=== PATIENT | female | born 1955 | race Caucasian/White ===

== ENCOUNTER 2024-07-24 13:23 | Inpatient (IN) | payer OTHER ==
[~2024-07-24] VITALS: Ht 157.4 cm; Wt 121.6 kg
[2024-07-24 13:36] VITALS: BP 143/73
[2024-07-24 13:56] LABS: BASO % 0.4 % (0.0-1.0); EOS # 0.5 10*3/uL (0.0-0.4); EOS % 4.8 % (1.0-4.0); HEMATOCRIT 34.9 % (37.0-47.0); LYMPH # 1.1 10*3/uL (1.3-4.4); MEAN CELL VOLUME 94.1 fl (81.0-99.0); MEAN CORPUSCULAR HGB 29.1 pg (27.0-31.0); MEAN CORPUSCULAR HGB CONC 30.9 g/dl (33.0-37.0); MEAN PLATELET VOLUME 8.1 fl (9.6-12.3); MONO # 0.7 10*3/uL (0.1-1.0); MONO % 7.2 % (3.0-9.0); NEUT # 7.4 10*3/uL (2.3-7.9); PLATELET COUNT AUTOMATED 227 10*3/uL (130-400); RED BLOOD COUNT 3.71 10*6/uL (4.10-5.10); RED CELL DISTRI WIDTH 13.2 % (0-14.5); WHITE BLOOD COUNT 9.9 10*3/uL (4.8-10.8)
[2024-07-24 14:14] LABS: BILIRUBIN Negative (Negative); BLOOD 2+ (Negative); CLARITY Turbid (Clear); COLOR Dark Yellow (Yellow); GLUCOSE Negative (Negative); KETONE Negative (Negative); LEUKO ESTERASE 3+ (Negative); NITRITE Positive (Negative); PH 7.5 (4.5-8.0); SPECIFIC GRAVITY <= 1.005 (1.001-1.030); UROBILINOGEN 0.2 E.U./dl (0.0-1.0)
[2024-07-24 14:16] LABS: BUN 8 mg/dl (9-23); CHLORIDE 99 mmol/L (98-107); CPK 28 U/L (34-171); POTASSIUM 4.2 mmol/L (3.4-5.1)
[2024-07-24 14:21] LABS: URINE AMPHETAMINES Negative (1000ng/ml); URINE BARBITURATES Negative (200ng/ml); URINE BENZODIAZEPINES Negative (200ng/ml); URINE CANNABINOIDS (THC) Negative (50ng/ml); URINE COCAINE Negative (300ng/ml); URINE METHADONE Negative (300ng/ml); URINE OPIATES Negative (300ng/ml); URINE PHENCYCLIDINE Negative (25ng/ml)
[2024-07-24 14:29] LABS: BACTERIA 4+; RBC 31-40 rbc/hpf (0-2); TRIP PHOS CRYSTALS 3+; WBC 31-40 wbc/hpf (0-5)
[2024-07-24 14:30] LABS: ETHYL ALCOHOL < 3.0 mg/dl (<3)
[2024-07-24] MEDS ORDERED: Lidocaine Hydrochloride 2% 5 ML SDV ONE (16:01)
[2024-07-24 16:20] VITALS: BP 133/73
[2024-07-24] MEDS ORDERED: clonAZEPAM 0.5 MG TAB PO SCH (18:00)
[2024-07-24] MEDS ORDERED: Magnesium Hydroxide 30 ML UDC PO PRN (18:20)
[2024-07-24] MEDS ORDERED: ACETAMINOPHEN 325 MG TAB PO PRN (18:20)
[2024-07-24] MEDS ORDERED: MG-AL HYDROXIDE/SIMETICONE 30 ML UDC PO PRN (18:20)
[2024-07-24] MEDS ORDERED: Ziprasidone Mesylate 20 MG VIAL IM PRN (18:25)
[2024-07-24] MEDS ORDERED: NYSTATIN1 EAC5 MC (18:40)
[2024-07-24] MEDS ORDERED: OXYBUTYNIN5 MG PO (18:45)
[2024-07-24] MEDS ORDERED: POTASSIUM CHLO20 ME3 PO (18:50)
[2024-07-24] MEDS ORDERED: PROMETHAZINE HC25 M1 PO (18:53)
[2024-07-24] MEDS ORDERED: PROTONIX40 MG PO (18:57)
[2024-07-24] MEDS ORDERED: PYRIDIUM100 MG PO (18:59)
[2024-07-24] MEDS ORDERED: ADULTS MULTIVI1 EACH PO (19:02)
[2024-07-24] MEDS ORDERED: VENTOLIN 02.5 MG/3 M INH (19:04)
[2024-07-24] MEDS ORDERED: TUMS ULTRA400 M1 PO (19:07)
[2024-07-24 20:00] VITALS: BP 120/59
[2024-07-24] MEDS ORDERED: LORazepam 2 MG/ML VIAL IM SCH (20:00)
[2024-07-24] MEDS ORDERED: clonAZEPAM 1 MG TAB PO SCH (21:00)
[2024-07-24] MEDS ORDERED: QUETIAPINE FUMARATE 300 MG TAB PO SCH (21:00)
[2024-07-24] MEDS ORDERED: Memantine Hydrochloride 10 MG TAB PO SCH (21:00)
[2024-07-25] MEDS ORDERED: LORazepam 2 MG/ML VIAL IM PRN (04:13)
[2024-07-25 07:42] LABS: BASO % 0.5 % (0.0-1.0); EOS # 0.6 10*3/uL (0.0-0.4); EOS % 7.1 % (1.0-4.0); HEMATOCRIT 29.9 % (37.0-47.0); LYMPH # 1.3 10*3/uL (1.3-4.4); LYMPH % 16.3 % (27.0-41.0); MEAN CELL VOLUME 94.9 fl (81.0-99.0); MEAN CORPUSCULAR HGB 29.2 pg (27.0-31.0); MEAN CORPUSCULAR HGB CONC 30.8 g/dl (33.0-37.0); MONO # 0.6 10*3/uL (0.1-1.0); MONO % 8.2 % (3.0-9.0); NEUT # 5.2 10*3/uL (2.3-7.9); NEUT % 67.8 % (47.0-73.0); PLATELET COUNT AUTOMATED 190 10*3/uL (130-400); RED BLOOD COUNT 3.15 10*6/uL (4.10-5.10); RED CELL DISTRI WIDTH 13.6 % (0-14.5); WHITE BLOOD COUNT 7.7 10*3/uL (4.8-10.8)
[2024-07-25 07:57] VITALS: BP 125/51
[2024-07-25 08:33] LABS: ALKALINE PHOSPHATASE 116 U/L (46-116); BUN 7 mg/dl (9-23); CHLORIDE 103 mmol/L (98-107); CHOLESTEROL 191 mg/dL (<200); LDL CHOLESTEROL 126 mg/dL (9-159); POTASSIUM 4.1 mmol/L (3.4-5.1); SGPT/ALT 7 U/L (5-49); TOTAL PROTEIN 5.9 gm/dL (6.0-8.0); TRIGLYCERIDES 66 mg/dl (<150)
[2024-07-25 08:38] LABS: VITAMIN D, 25-HYDROXY 42.1 ng/mL (30-100)
[2024-07-25] MEDS ORDERED: RISPERIDONE 0.5 MG TAB PO SCH (09:00)
[2024-07-25] MEDS ORDERED: Rivastigmine Tartrate 4.6 MG/24 HR PATCH T SCH (09:00)
[2024-07-25] MEDS ORDERED: clonAZEPAM 1 MG TAB PO SCH ×2 (09:00→10:00)
[2024-07-25] MEDS ORDERED: Nitrofurantoin Monohydrate/N 100 MG CAP PO SCH (11:45)
[2024-07-25 19:49] VITALS: BP 119/81
[2024-07-26] MEDS ORDERED: Albuterol Sulfate 2.5 MG/3 ML VIAL NEB PRN (02:35)
[2024-07-26] MEDS ORDERED: Phenazopyridine Hydrochlorid2 100 MG TAB PO PRN (02:35)
[2024-07-26] MEDS ORDERED: Pantoprazole Sodium 40 MG TAB PO SCH (06:00)
[2024-07-26 08:00] VITALS: BP 121/55
[2024-07-26] MEDS ORDERED: Oxybutynin Chloride 5 MG TAB PO SCH (10:00)
[2024-07-26 20:00] VITALS: BP 138/72
[2024-07-26] MEDS ORDERED: NYSTATIN 15 GM BOT T SCH (21:00)
[2024-07-27 08:00] VITALS: BP 120/60
[2024-07-27] MEDS ORDERED: Fosfomycin Tromethamine 3 GM PDS PO SCH (12:40)
[2024-07-27] MEDS ORDERED: Menthol/Zinc Oxide 4 GM THIN T PRN (15:05)
[2024-07-27] MEDS ORDERED: NAMENDA-5 PO ×2 (18:36→18:37)
[2024-07-27] MEDS ORDERED: SEROQUEL100 MG PO (18:38)
[2024-07-27] MEDS ORDERED: SEROQUEL300 MG PO (18:39)
[2024-07-27] MEDS ORDERED: FERROUS SULFAT325 MG PO (18:49)
[2024-07-27] MEDS ORDERED: 24 HOUR ALLER15.8 ML NAS (18:50)
[2024-07-27] MEDS ORDERED: NEURONTIN100 MG PO (18:51)
[2024-07-27] MEDS ORDERED: GUAIFENESIN DM PO (18:52)
[2024-07-27] MEDS ORDERED: CHLORHEXIDINE FL1 ML T (18:54)
[2024-07-27] MEDS ORDERED: CORTISONE28 GM T (18:55)
[2024-07-27] MEDS ORDERED: IMODIUM A-D2 M2 PO (19:17)
[2024-07-27] MEDS ORDERED: [UNRECOGNIZED DRUG - OTHER] PO (19:18)
[2024-07-27] MEDS ORDERED: LASIX20 MG PO (19:20)
[2024-07-27] MEDS ORDERED: MILK OF MA400 MG/53 PO (19:22)
[2024-07-27] MEDS ORDERED: TYLENOL325 M1 PO (19:23)
[2024-07-27] MEDS ORDERED: AMITIZA24 MCG PO (19:25)
[2024-07-27] MEDS ORDERED: AMLODIPINE BESYL5 MG PO (19:26)
[2024-07-27] MEDS ORDERED: VITAMIN D325 MCG PO (19:28)
[2024-07-27] MEDS ORDERED: CRANBERRY500 M3 PO (19:29)
[2024-07-27] MEDS ORDERED: AZO D-MANNOSE500 MG PO (19:30)
[2024-07-27] MEDS ORDERED: DESMOPRESSIN0.2 MG PO (19:31)
[2024-07-27] MEDS ORDERED: EXELON1 EAC2 TD (19:34)
[2024-07-27] MEDS ORDERED: FUROSEMIDE 20 MG TAB PO ONE (19:45)
[2024-07-27 20:00] VITALS: BP 141/66
[2024-07-27] MEDS ORDERED: FERROUS SULFATE 325 MG TAB PO SCH (21:00)
[2024-07-27] MEDS ORDERED: clomiPRAMINE Hydrochloride 25 MG CAP PO SCH (21:00)
[2024-07-27] MEDS ORDERED: RISPERIDONE 1 MG TAB PO SCH (21:00)
[2024-07-27] MEDS ORDERED: Menthol/Zinc Oxide 4 GM THIN T SCH (22:00)
[2024-07-28 08:00] VITALS: BP 143/63
[2024-07-28] MEDS ORDERED: RISPERIDONE 100 MG/0.28 ML SUSER.SYR SQ SCH (09:00)
[2024-07-28] MEDS ORDERED: Vitamin D 1,000 IU TAB (25 MCG) PO SCH (09:00)
[2024-07-28] MEDS ORDERED: Rivastigmine Tartrate 9.5 MG/24 HR PATCH T SCH (09:00)
[2024-07-28] MEDS ORDERED: amLODIPine besylate 5 MG TAB PO SCH (09:00)
[2024-07-28] MEDS ORDERED: LORazepam 1 MG TAB PO PRN (09:30)
[2024-07-28 20:00] VITALS: BP 120/55
[2024-07-29 08:00] VITALS: BP 128/63
[2024-07-29] MEDS ORDERED: Albuterol Sulf/Ipratropium 3 ML VIAL NEB SCH (11:30)
[2024-07-29] MEDS ORDERED: FLUTICASONE PROPIONATE Nasal 16 Gm spray NAS SCH (12:45)
[2024-07-29] MEDS ORDERED: Cetirizine Hydrochloride 10 MG TAB PO SCH (12:45)
[2024-07-29 20:00] VITALS: BP 132/66
[2024-07-30 08:00] VITALS: BP 131/58
[2024-07-30] MEDS ORDERED: Albuterol Sulf/Ipratropium 3 ML VIAL NEB PRN (08:10)
[2024-07-30] MEDS ORDERED: FUROSEMIDE 20 MG TAB PO SCH (09:00)
[2024-07-30 20:00] VITALS: BP 136/76
[2024-07-30] MEDS ORDERED: clomiPRAMINE Hydrochloride 25 MG CAP PO SCH (21:00)
[2024-07-31] MEDS ORDERED: MEMANTINE HCL10 MG PO (06:59)
[2024-07-31] MEDS ORDERED: CLONAZEPAM1 MG PO (06:59)
[2024-07-31 08:18] VITALS: BP 133/64
[2024-07-31] MEDS ORDERED: RIVASTIGMINE 13.3 MG/24 HR TDM T SCH (09:00)
[2024-07-31 20:00] VITALS: BP 145/56
[2024-08-01 07:03] LABS: BASO # 0.1 10*3/uL (0.0-0.1); BASO % 0.7 % (0.0-1.0); EOS # 0.7 10*3/uL (0.0-0.4); EOS % 8.2 % (1.0-4.0); HEMATOCRIT 31.5 % (37.0-47.0); LYMPH # 1.8 10*3/uL (1.3-4.4); LYMPH % 21.6 % (27.0-41.0); MEAN CELL VOLUME 92.6 fl (81.0-99.0); MEAN CORPUSCULAR HGB 29.4 pg (27.0-31.0); MEAN CORPUSCULAR HGB CONC 31.7 g/dl (33.0-37.0); MEAN PLATELET VOLUME 8.6 fl (9.6-12.3); MONO # 0.6 10*3/uL (0.1-1.0); MONO % 7.1 % (3.0-9.0); NEUT # 5.1 10*3/uL (2.3-7.9); NEUT % 62.2 % (47.0-73.0); PLATELET COUNT AUTOMATED 203 10*3/uL (130-400); RED CELL DISTRI WIDTH 13.2 % (0-14.5); WHITE BLOOD COUNT 8.3 10*3/uL (4.8-10.8)
[2024-08-01 07:40] LABS: ALKALINE PHOSPHATASE 119 U/L (46-116); BUN 7 mg/dl (9-23); CHLORIDE 100 mmol/L (98-107); TOTAL PROTEIN 6.8 gm/dL (6.0-8.0)
[2024-08-01 07:42] LABS: SGPT/ALT < 7 U/L (5-49)
[2024-08-01 08:00] VITALS: BP 131/66
[2024-08-01] MEDS ORDERED: Trihexyphenidyl Hydrochlorid 2 MG TAB PO SCH (09:00)
[2024-08-01] MEDS ORDERED: MUPIROCIN 15 GM TUBE T SCH (10:00)
[2024-08-01] MEDS ORDERED: BISACODYL 5 MG TAB PO PRN (12:00)
[2024-08-01 20:00] VITALS: BP 123/53
[2024-08-02 08:00] VITALS: BP 126/56
[2024-08-02 20:00] VITALS: BP 130/85
[2024-08-03 08:16] VITALS: BP 129/69
[2024-08-03] MEDS ORDERED: HYDROCORTISONE 1% OINTMENT 30 GM TUBE T SCH (09:00)
[2024-08-03] MEDS ORDERED: RIVASTIGMINE1 EAC2 T (09:49)
[2024-08-03] MEDS ORDERED: CLOMIPRAMINE25 MG PO (09:49)
[2024-08-03] MEDS ORDERED: TRIHEXYPHENIDYL2 M3 PO (09:49)
[2024-08-04 18:07] LABS: CLONAZEPAM (KLONOPIN),SERUM 16 ng/mL (20-70)
== END 2024-08-03 12:56 | DRG 885 ==
LOC: ED 13:23 → 3N 15:53 → EDHOLD 15:53 → 3N 15:58
PROVIDERS: Counselor Professional; Emergency Medicine; ADMIT Psychiatry & Neurology Psychiatry; ATTEND Psychiatry & Neurology Psychiatry
PROC: GZHZZZZ Group Psychotherapy (ICD-10-PCS; principal; 2024-07-25)
PROC: GZ51ZZZ Individual Psychotherapy, Behavioral (ICD-10-PCS; 2024-07-25)
DX: F25.9 Schizoaffective disorder, unspecified (principal); Z93.59 Other cystostomy status; E44.0 Moderate protein-calorie malnutrition; N30.00 Acute cystitis without hematuria; Z68.42 Body mass index [BMI] 45.0-49.9, adult; E66.01 Morbid (severe) obesity due to excess calories; D64.9 Anemia, unspecified; J44.9 Chronic obstructive pulmonary disease, unspecified; F42.9 Obsessive-compulsive disorder, unspecified; G30.9 Alzheimer's disease, unspecified; F02.80 Dementia in other diseases classified elsewhere, unspecified severity, without behavioral disturbance, psychotic disturbance, mood disturbance, and anxiety; Z82.49 Family history of ischemic heart disease and other diseases of the circulatory system; Z83.3 Family history of diabetes mellitus; B96.89 Other specified bacterial agents as the cause of diseases classified elsewhere; S30.0XXA Contusion of lower back and pelvis, initial encounter; S31.104A Unspecified open wound of abdominal wall, left lower quadrant without penetration into peritoneal cavity, initial encounter; S31.103A Unspecified open wound of abdominal wall, right lower quadrant without penetration into peritoneal cavity, initial encounter; B96.4 Proteus (mirabilis) (morganii) as the cause of diseases classified elsewhere; S80.822A Blister (nonthermal), left lower leg, initial encounter; X58.XXXA Exposure to other specified factors, initial encounter; Y93.89 Activity, other specified; Y92.89 Other specified places as the place of occurrence of the external cause; Y99.8 Other external cause status